=== PATIENT | male | born 1930 | race Caucasian/White ===

== ENCOUNTER → 2021-05-25 | Emergency (ER) | payer OTHER ==
[~2021-05-25] VITALS: Ht 182.9 cm; Wt 83.9 kg
== END | disposition left against medical advice (07) ==
LOC: ER 16:16
DX: S70.01XA Contusion of right hip, initial encounter (principal); W18.30XA Fall on same level, unspecified, initial encounter; Y93.89 Activity, other specified; Y92.89 Other specified places as the place of occurrence of the external cause; Y99.9 Unspecified external cause status; I10 Essential (primary) hypertension